=== PATIENT | female | born 1945 | race Caucasian/White ===

== ENCOUNTER 2021-01-17 16:28 | Inpatient (IN) | payer MEDICARE, BC ==
[~2021-01-17] VITALS: Ht 157.5 cm; Wt 52.2 kg
[2021-01-17] MEDS ORDERED: CYCLOPHOSPHAMID PO (20:51)
[2021-01-17] MEDS ORDERED: AZELASTINE137 MCG/0. (20:52)
[2021-01-17] MEDS ORDERED: PREDNISONE20 MG PO (20:52)
[2021-01-17] MEDS ORDERED: BUSPIRONE HCL5 MG PO (20:53)
[2021-01-17] MEDS ORDERED: SYNTHROID75 MCG PO (20:54)
[2021-01-17] MEDS ORDERED: ZYRTEC10 MG PO (20:54)
[2021-01-17] MEDS ORDERED: OMEPRAZOLE20 MG PO (20:55)
[2021-01-17] MEDS ORDERED: RALOXIFENE HCL60 MG PO (20:55)
[2021-01-17] MEDS ORDERED: MULTIVITAMINS1 EAC2 PO (20:55)
[2021-01-17] MEDS ORDERED: AMLODIPINE BESYL5 MG PO (21:00)
[2021-01-17] MEDS ORDERED: HYDRALAZINE HCL50 MG PO (21:00)
[2021-01-17] MEDS ORDERED: MYCOSTATIN100000 UTS PO (21:02)
[2021-01-17] MEDS ORDERED: ONDANSETRON HCL4 MG PO (21:02)
[2021-01-17 22:05] LABS: HEMOGLOBIN 9.1 gm/dl (12.3-15.3); RED BLOOD COUNT 2.87 M/UL (4.00-5.10); WHITE BLOOD COUNT 5.2 K/UL (4.5-11.0)
[2021-01-19 05:15] LABS: HEMOGLOBIN 10.3 gm/dl (12.3-15.3)
[2021-01-19 05:18] LABS: RED BLOOD COUNT 3.26 M/UL (4.00-5.10); WHITE BLOOD COUNT 7.6 K/UL (4.5-11.0)
[2021-01-19 11:11] LABS: HIV SCREEN 4TH GENERATION WRFX Non Reactive (Non Reactive)
[2021-01-19 13:48] LABS: BORDETELLA PARAPERTUSSIS Not Detected (Not Detectd); BORDETELLA PERTUSSIS Not Detected (Not Detectd); CHLAMYDIA PNEUMONIAE Not Detected (Not Detectd); CORONAVIRUS HKU1 Not Detected (Not Detectd); CORONAVIRUS NL63 Not Detected (Not Detectd); CORONAVIRUS OC43 Not Detected (Not Detectd); CORONOAVIRUS 229E Not Detected (Not Detectd); HUMAN METAPNEUMOVIRUS Not Detected (Not Detectd); HUMAN RHINOVIRUS/ENTEROVIRUS Not Detected (Not Detectd); INFLUENZA A Not Detected (Not Detectd); INFLUENZA B Not Detected (Not Detectd); MYCOPLASMA PNEUMONIAE Not Detected (Not Detectd); PARAINFLUENZA VIRUS 1 Not Detected (Not Detectd); PARAINFLUENZA VIRUS 2 Not Detected (Not Detectd); PARAINFLUENZA VIRUS 3 Not Detected (Not Detectd); PARAINFLUENZA VIRUS 4 Not Detected (Not Detectd); RESPIRATORY SYNCYTIAL VIRUS Not Detected (Not Detectd)
[2021-01-19 15:06] LABS: SARS-CoV-2 NOT DETECTED (Not Detectd)
[2021-01-20 05:32] LABS: RED BLOOD COUNT 3.24 M/UL (4.00-5.10); WHITE BLOOD COUNT 6.6 K/UL (4.5-11.0)
[2021-01-20 08:15] LABS: HBSAG SCREEN Negative (Negative); HEP A AB, IGM Negative (Negative); HEP B CORE AB, IGM Negative (Negative); HEP C VIRUS AB <0.1 (0.0-0.9)
[2021-01-20 12:15] LABS: RHEUMATOID ARTHRITIS FACTOR 10.2 IU/mL (0.0-13.9)
[2021-01-20 17:11] LABS: ANTI-DSDNA ANTIBODIES <1 IU/mL (0-9); ATYPICAL PANCA <1:20 titer (Neg:<1:20); CYTOPLASMIC (C-ANCA) <1:20 titer (Neg:<1:20); PERINUCLEAR (P-ANCA) <1:20 titer (Neg:<1:20)
[2021-01-21 04:16] LABS: HEMOGLOBIN 9.6 gm/dl (12.3-15.3); RED BLOOD COUNT 3.11 M/UL (4.00-5.10); WHITE BLOOD COUNT 6.2 K/UL (4.5-11.0)
[2021-01-21 09:14] LABS: DRVVT 44.6 sec (0.0-47.0); LUPUS REFLEX INTERPRETATION Comment: (.); PT 11.4 sec (9.1-12.0); PT 1:1NP 10.9 sec (9.1-12.0); PTT-LA 31.2 sec (0.0-51.9); THROMBIN TIME 16.9 sec (0.0-23.0)
[2021-01-21 11:14] LABS: ANTIHISTONE ANTIBODIES 0.2 Units (0.0-0.9)
[2021-01-22 04:16] LABS: HEMOGLOBIN 10.3 gm/dl (12.3-15.3); RED BLOOD COUNT 3.32 M/UL (4.00-5.10); WHITE BLOOD COUNT 7.5 K/UL (4.5-11.0)
[2021-01-23 04:05] LABS: HEMOGLOBIN 10.2 gm/dl (12.3-15.3); RED BLOOD COUNT 3.31 M/UL (4.00-5.10); WHITE BLOOD COUNT 6.2 K/UL (4.5-11.0)
[2021-01-24 02:57] LABS: HEMOGLOBIN 9.9 gm/dl (12.3-15.3); RED BLOOD COUNT 3.25 M/UL (4.00-5.10)
[2021-01-24 02:58] LABS: WHITE BLOOD COUNT 8.3 K/UL (4.5-11.0)
[2021-01-25 03:37] LABS: HEMOGLOBIN 10.2 gm/dl (12.3-15.3); RED BLOOD COUNT 3.33 M/UL (4.00-5.10); WHITE BLOOD COUNT 7.2 K/UL (4.5-11.0)
[2021-01-26 03:31] LABS: HEMOGLOBIN 10.4 gm/dl (12.3-15.3); RED BLOOD COUNT 3.32 M/UL (4.00-5.10)
[2021-01-26 14:37] LABS: URINE CREATININE 30.3 mg/dL
[2021-01-27 03:55] LABS: HEMOGLOBIN 11.3 gm/dl (12.3-15.3); RED BLOOD COUNT 3.61 M/UL (4.00-5.10)
[2021-01-28 02:52] LABS: HEMOGLOBIN 9.9 gm/dl (12.3-15.3); RED BLOOD COUNT 3.32 M/UL (4.00-5.10); WHITE BLOOD COUNT 6.1 K/UL (4.5-11.0)
[2021-01-29 02:58] LABS: HEMOGLOBIN 9.8 gm/dl (12.3-15.3); RED BLOOD COUNT 3.15 M/UL (4.00-5.10); WHITE BLOOD COUNT 5.7 K/UL (4.5-11.0)
[2021-01-30 03:05] LABS: HEMOGLOBIN 10.1 gm/dl (12.3-15.3); RED BLOOD COUNT 3.28 M/UL (4.00-5.10); WHITE BLOOD COUNT 6.6 K/UL (4.5-11.0)
[2021-01-31 08:05] LABS: RED BLOOD COUNT 3.57 M/UL (4.00-5.10); WHITE BLOOD COUNT 6.4 K/UL (4.5-11.0)
[2021-02-01 02:58] LABS: HEMOGLOBIN 9.4 gm/dl (12.3-15.3)
[2021-02-01 02:59] LABS: RED BLOOD COUNT 3.06 M/UL (4.00-5.10); WHITE BLOOD COUNT 8.9 K/UL (4.5-11.0)
[2021-02-02] MEDS ORDERED: ATOVAQUONE750 MG/5 M PO (11:59)
[2021-02-02] MEDS ORDERED: ASPIRIN EC81 MG PO (11:59)
[2021-02-02] MEDS ORDERED: LOPRESSOR 25 MG25 MG PO (11:59)
[2021-02-02] MEDS ORDERED: HEPARIN SO5000 UNIT2 SC (11:59)
[2021-02-02] MEDS ORDERED: DIFLUCAN 100 M100 MG PO (11:59)
[2021-02-02] MEDS ORDERED: ACETAMINOPHEN325 MG PO (11:59)
[2021-02-02] MEDS ORDERED: POLYETHYLENE GL17 GM PO (11:59)
[2021-02-02] MEDS ORDERED: ATORVASTATIN CA20 MG PO (11:59)
[2021-02-02] MEDS ORDERED: VALCYTE450 MG PO (11:59)
[2021-02-02] MEDS ORDERED: BUDESONIDE0.5 MG/2 M NEB (11:59)
[2021-02-02] MEDS ORDERED: IPRAT-ALBUT 0.5-3 ML NEB (11:59)
[2021-02-02] MEDS ORDERED: [UNRECOGNIZED DRUG - OTHER] PO (11:59)
[2021-02-02] MEDS ORDERED: STIMULANT LAXA1 EACH PO (11:59)
[2021-02-02] MEDS ORDERED: PREDNISONE 10 M10 MG PO (11:59)
[2021-02-02] MEDS ORDERED: [UNRECOGNIZED DRUG - OTHER] IV (12:28)
== END 2021-02-02 17:34 | DRG 545 ==
LOC: CCU 20:47 → PROG CARE 20:47
PROVIDERS: Family Medicine; Internal Medicine; Internal Medicine Gastroenterology; Internal Medicine Infectious Disease; Internal Medicine Nephrology; Internal Medicine Pulmonary Disease; ADMIT Internal Medicine
PROC: 0B9J8ZX Drainage of Left Lower Lung Lobe, Via Natural or Artificial Opening Endoscopic, Diagnostic (ICD-10-PCS; principal; 2021-01-17)
PROC: 0B9F8ZX Drainage of Right Lower Lung Lobe, Via Natural or Artificial Opening Endoscopic, Diagnostic (ICD-10-PCS; 2021-01-17)
PROC: 5A1D70Z Performance of Urinary Filtration, Intermittent, Less than 6 Hours Per Day (ICD-10-PCS; 2021-01-18)
DX: M31.7 Microscopic polyangiitis (principal); J12.89 Other viral pneumonia; J96.01 Acute respiratory failure with hypoxia; I21.A1 Myocardial infarction type 2; N18.6 End stage renal disease; K72.00 Acute and subacute hepatic failure without coma; G92 Toxic encephalopathy; N17.9 Acute kidney failure, unspecified; B00.89 Other herpesviral infection; E87.1 Hypo-osmolality and hyponatremia; B25.8 Other cytomegaloviral diseases; E44.0 Moderate protein-calorie malnutrition; D84.89 Other immunodeficiencies; I13.2 Hypertensive heart and chronic kidney disease with heart failure and with stage 5 chronic kidney disease, or end stage renal disease; Z66 Do not resuscitate; B97.89 Other viral agents as the cause of diseases classified elsewhere; R74.01 Elevation of levels of liver transaminase levels; D53.9 Nutritional anemia, unspecified; R49.0 Dysphonia; K25.9 Gastric ulcer, unspecified as acute or chronic, without hemorrhage or perforation; Z20.822 Contact with and (suspected) exposure to COVID-19; M81.0 Age-related osteoporosis without current pathological fracture; J30.2 Other seasonal allergic rhinitis; K21.9 Gastro-esophageal reflux disease without esophagitis; E03.9 Hypothyroidism, unspecified; N05.8 Unspecified nephritic syndrome with other morphologic changes; K75.89 Other specified inflammatory liver diseases; I50.9 Heart failure, unspecified; Y92.89 Other specified places as the place of occurrence of the external cause; Z68.22 Body mass index [BMI] 22.0-22.9, adult
CPT/HCPCS: ECHO; 36415; 36600; 71045; 71250; 76705; 80053; 80061; 80074; 80202; 81001; 82550; 82553; 82570; 82575; 82607; 82746; 82803; 83036; 83540; 83550; 83615; 83735; 83880; 84100; 84439; 84443; 84484; 85025; 85027; 85610; 85611; 85652; 85730; 86038; 86140; 86225; 86256; 86431; 86644; 87015; 87040; 87070; 87116; 87205; 87206; 87252; 87389; 87633; 88172; 90935; 90937; 93005; 93306; 94640; 94660; 94664; 94760; 97110; 97116; 97116-GP-CQ; 97162; 97166; 97530; 97530-GP-CQ; 97535; C9113; J1100; J1570; J1644; J1940; J2185; J2405; J2704; J2920; J2930; J3370; J7030; J7040; J7050; J7070; P9047; U0002